=== PATIENT | female | born 1995 | race Two or more races ===

== ENCOUNTER 2023-01-28 15:50 | Inpatient (IN) | payer OTHER ==
[2023-01-28] MEDS ORDERED: Misoprostol 200 MCG TAB PR PRN (16:05)
[2023-01-28] MEDS ORDERED: Fentanyl 100 MCG/2 ML VIAL SLOW IVP PRN (16:05)
[2023-01-28] MEDS ORDERED: Diphenoxylate HCl/Atropine Tablet PO PRN (16:05)
[2023-01-28] MEDS ORDERED: Ondansetron PF 4 MG/2 ML Vial IVP PRN (16:05)
[2023-01-28] MEDS ORDERED: Tranexamic Acid 1,000 MG/10 ML VIAL IVP PRN (16:05)
[2023-01-28] MEDS ORDERED: Lidocaine 1% (PF) 30 ML VIAL SC PRN (16:05)
[2023-01-28] MEDS ORDERED: Promethazine HCl 25 MG/ML VIAL IM PRN (16:05)
[2023-01-28] MEDS ORDERED: hydrALAZINE 20 MG/ML VIAL SLOW IVP PRN (16:05)
[2023-01-28] MEDS ORDERED: Methylergonovine 0.2 MG/ML VIAL IM PRN (16:05)
[2023-01-28] MEDS ORDERED: Carboprost 250 MCG/ML AMP IM PRN (16:05)
[2023-01-28] MEDS ORDERED: Penicillin G Potassium 5 MILL.UNITS VIAL ONE (16:15)
[2023-01-28] MEDS ORDERED: NS w/ Oxytocin 30 units 500 ML IV SCH (16:15)
[2023-01-28] MEDS ORDERED: Magnesium Sulfate 20 gm/500 ml 20 GM/500 ML BAG IVPB SCH (16:15)
[2023-01-28] MEDS ORDERED: Betamet Acet/Betamet Na Ph 30 MG/5 ML VIAL ONE (16:15)
[2023-01-28] MEDS ORDERED: Betamet Acet/Betamet Na Ph 30 MG/5 ML VIAL IM SCH (16:15)
[2023-01-28] MEDS ORDERED: Penicillin G Potassium 5 MILL.UNITS in Sodium Chloride 0.9% 100 ML IVPB SCH (16:15)
[2023-01-28] MEDS ORDERED: Magnesium Sulfate 20 gm/500 ml 20 GM/500 ML BAG ONE (16:15)
[2023-01-28 16:57] VITALS: BMI 25.4
[2023-01-28 17:04] LABS: Bilirubin Neg (Negative); Blood, Urine Negative (Negative); Clarity Clear (Clear); Glucose, Urine (Dipstick) Normal (Negative); Ketone, Urine 15 mg/dL (Negative); Leukocyte 25 (Negative); Nitrite Negative (Negative); Protein, Urine (Dipstick) Negative (Neg-Trace); Urobilinogen Normal mg/dL (Less than 2)
[2023-01-28] MEDS: Lactated Ringer's 1,000 ML IV SCH (17:06)
[2023-01-28 17:12] LABS: Amphetamine Not Detected (NotDetected); Bacteria/HPF Rare-Few HPF (None Seen); Barbiturates Screen Not Detected (NotDetected); Benzodiazepine Screen Not Detected (NotDetected); Cocaine Metabolite Screen Not Detected (NotDetected); Methadone Not Detected (NotDetected); Methamphetamine Not Detected (NotDetected); Opiate Screen Not Detected (NotDetected); Oxycodone Screen Not Detected (NotDetected); Phencyclidine (PCP) Not Detected (NotDetected); RBC/HPF 0-3 HPF (0-3); Squamous Epithelial 0-3 HPF (0-3); THC/Cannabinoid Screen Detected (NotDetected); Tricyclic Screen Not Detected (NotDetected)
[2023-01-28] MEDS ORDERED: Azithromycin 1,000 MG, Admixture Fee 1 EACH in Sodium Chloride 0.9% 500 ML IVPB SCH (17:30)
[2023-01-28 17:33] LABS: Hemoglobin 10.8 g/dL (12.0-15.5); Mean Corpuscular HGB CONC 33.4 g/dL (32.0-36.0); Mean Corpuscular Hemoglobin 30.6 pg (27.0-33.0); Mean Corpuscular Volume 91.5 fl (81.6-98.3); Mean Platelet Volume 10.2 fl (7.4-10.4); Platelet Count 211 10x3/uL (150-450); RBC Distribution Width 12.4 % (11.5-14.5); Red Blood Cell (RBC) Count 3.53 10x6/uL (3.90-5.03); White Blood Cell (WBC) Count 14.4 10x3/uL (3.5-10.5)
[2023-01-28 18:00] LABS: HBSAg Index 0.15 S/CO (0-0.99); Hep B Surf Ag - L&D Non-Reactive S/CO (NonReactive); Syphilis Antibody Nonreactive (Nonreactive); Syphilis Antibody Index 0.09 S/CO (<1.00 Non-Reactive)
[2023-01-28 19:10] LABS: HIV (1/2) Antibody/Antigen Non-Reactive (NonReactive); HIV 1/2 INDEX 0.08 S/CO (<1.00)
[2023-01-28] MEDS ORDERED: Penicillin G 2.5 MILL.units 2.5 MILL.UNITS in Premix Bag 1 BAG IVPB SCH (20:15)
[2023-01-28 23:23] LABS: Chlamydia by PCR, EndoCx Swab Not Detected (NotDetected); GC by PCR, EndoCx Swab Not Detected (NotDetected)
[2023-01-29] MEDS ORDERED: Ketorolac Tromethamine 30 MG/ML VIAL ONE (00:41)
[2023-01-29 00:50] LABS: RapidComm Collect By CBN
[2023-01-29 00:52] LABS: RapidComm Collect By CBN; pH (Cord, venous) 7.428 (7.250-7.350)
[2023-01-29] MEDS ORDERED: Milk Of Magnesia 30 ML UDCUP PO PRN (07:53)
[2023-01-29] MEDS ORDERED: Boostrix 0.5 ML (Tdap) VIAL (>/=7 yrs of age) IM ONE (07:53)
[2023-01-29] MEDS ORDERED: hydrALAZINE 20 MG/ML VIAL SLOW IVP PRN (07:53)
[2023-01-29] MEDS ORDERED: Bisacodyl 10 MG SUPP PR PRN (07:53)
[2023-01-29] MEDS: Ibuprofen 800 MG TAB PO SCH ×3 (08:41→21:36)
[2023-01-29] MEDS: Ferrous Sulfate 325 MG TAB PO SCH ×2 (08:42→18:03)
[2023-01-29] MEDS: Docusate 100 MG CAP PO SCH ×2 (08:42→21:36)
[2023-01-29] MEDS: Lactated Ringer's 1,000 ML IV SCH (09:59)
[2023-01-29 12:42] LABS: Hemoglobin 10.9 g/dL (12.0-15.5); Mean Corpuscular HGB CONC 32.7 g/dL (32.0-36.0); Mean Corpuscular Hemoglobin 30.4 pg (27.0-33.0); Mean Corpuscular Volume 92.8 fl (81.6-98.3); Mean Platelet Volume 10.4 fl (7.4-10.4); Platelet Count 236 10x3/uL (150-450); RBC Distribution Width 12.4 % (11.5-14.5); Red Blood Cell (RBC) Count 3.59 10x6/uL (3.90-5.03); White Blood Cell (WBC) Count 22.1 10x3/uL (3.5-10.5)
[2023-01-29 12:47] LABS: MDiff Complete? YES; Manual Diff?? YES
[2023-01-29 13:14] LABS: Band 24 % (5-11); Lymphocytes 12 % (21-51); Monocytes 11 % (0-10); Neutrophil 53 % (42-75)
[2023-01-29 13:16] LABS: Platelet Morphology Comment Appears Adequate
[2023-01-29] MEDS: HYDROcodone/Acetaminophen 5/325 mg Tablet PO PRN (19:48)
[2023-01-29 21:00] LABS: Group B Streptococcus by PCR DETECTED (NotDetected)
[2023-01-30] MEDS: HYDROcodone/Acetaminophen 5/325 mg Tablet PO PRN ×3 (00:27→16:37)
[2023-01-30] MEDS: Ibuprofen 800 MG TAB PO SCH ×3 (06:16→21:14)
[2023-01-30] MEDS: Docusate 100 MG CAP PO SCH ×2 (08:19→21:14)
[2023-01-30] MEDS: Ferrous Sulfate 325 MG TAB PO SCH ×2 (08:19→15:20)
[2023-01-31] MEDS: Ibuprofen 800 MG TAB PO SCH (05:47)
[2023-01-31 11:00] VITALS: BP 108/56; TEMP 98.2
== END 2023-01-31 15:00 | disposition home or self-care (01) | DRG 805 ==
LOC: CSHLD 16:51 → CSHPP 01-29 09:25
PROVIDERS: ADMIT Obstetrics & Gynecology; ATTEND Obstetrics & Gynecology
PROC: 10E0XZZ Delivery of Products of Conception, External Approach (ICD-10-PCS; principal; 2023-01-29)
DX: O60.12X0 Preterm labor second trimester with preterm delivery second trimester, not applicable or unspecified (principal); O34.32 Maternal care for cervical incompetence, second trimester; Z37.0 Single live birth; O45.92 Premature separation of placenta, unspecified, second trimester; O41.1230 Chorioamnionitis, third trimester, not applicable or unspecified; Z3A.26 26 weeks gestation of pregnancy; Z90.89 Acquired absence of other organs; O76 Abnormality in fetal heart rate and rhythm complicating labor and delivery; O77.0 Labor and delivery complicated by meconium in amniotic fluid; O42.012 Preterm premature rupture of membranes, onset of labor within 24 hours of rupture, second trimester; O71.82 Other specified trauma to perineum and vulva
CPT/HCPCS: 36415; 51702; 76815; 80306; 81001; 82805; 85025; 86762; 86780; 86850; 86900; 86901; 87340; 87389; 87491; 87591; 87653; 88305; 99285; J0456; J1885; J2540; J2590; J3475; J3490; J7030; J7120